=== PATIENT | female | born 1985 | race Caucasian/White ===

== ENCOUNTER 2019-06-15 23:16 | Emergency (ER) | payer OTHER, SELFPAY ==
[2019-06-15 23:16] VITALS: BP 132/76; PULSE 101; RESP 20; TEMP 36.8; O2SAT 99
--- NOTE | 2019-06-15 23:24 | ED.ASTHMA ---
HPI - Asthma General Chief Complaint: Asthma Stated Complaint: Asthma Time Seen by Provider: 06/15/19 23:18 Source: patient Mode of arrival: ambulatory Limitations: no limitations History of Present Illness HPI Narrative: 33-year-old woman with history of asthma comes in today complaining of progressively worsening cough over the last 3 days. Patient states that she initially had some nasal congestion and sinus pressure, congestion and rhinorrhea. She denies shortness of breath, fever, vomiting and sick exposures. She has had no recent travel. complaint: asthma attack Onset (ago): day(s) (3) Severity: moderate Context: recent URI Associated symptoms: dry cough Asthma History: history of prior ED visit Treatments Prior to Arrival: inhaled bronchodilator Related Data Current Asthma Therapy: inhaled bronchodilator Home Medications Medication Instructions Recorded Confirmed albuterol sulfate 2 puff INHALATION DAILY 06/15/19 06/15/19 bupropion HCl 150 mg PO DAILY 06/15/19 06/15/19 levonorgestrel-ethinyl estrad 1 tablet PO DAILY 06/15/19 06/15/19 [[id number]] Allergies Allergy/AdvReac Type Severity Reaction Status Date / Time No Known Allergies Allergy Verified 06/15/19 23:32 Review of Systems Constitutional: Constitutional: Denies chills, Denies fever(s) and Denies weakness Eyes: Eyes: Denies change in vision and Denies photophobia ENT: Denies dysphagia, Reports nasal congestion and Denies sore throat Cardiovascular: Cardiovascular: Reports chest pain and Reports radiating jaw, neck or arm pain Respiratory: Respiratory: Reports cough, Denies dyspnea and Denies wheezing Gastrointestinal: Gastrointestinal: Denies abdominal pain, Denies diarrhea, Denies nausea and Denies vomiting Genitourinary: Genitourinary: Denies hematuria, Denies nocturia and Denies dysuria Integumentary/Breasts: Skin/Breast: Denies pruritus, Denies erythema and Denies rash Neurologic: Denies vertigo, Denies dizziness and Denies syncope Psychiatric: Psychiatric: Denies anxiety and Denies depression Hematologic/Lymphatic: Hematologic/Lymphatic: Denies easy bleeding and Denies easy bruising Allergic/Immunologic: Allergic/Immunologic: Denies lip swelling and Denies throat swelling PMFSH Past Medical History Medical History Asthma Surgical History Surgical History H/O neck surgery History of section Social History Social History Smoking status: Never smoker Substance use: never Living arrangements: with family Exam Const: General: no acute distress and alert Orientation/consciousness: patient oriented x3 Limitations: no limitations HENMT: Ears: external ears normal, TM's normal bilaterally and EAC's normal Mouth: Yes Normal oral and palatal mucosa present and Yes moist mucous membranes Throat: posterior oropharynx normal and uvula midline Eyes: Conjunctivae: conjunctivae normal Pupils: Equal, round and reactive pupils present EOM: EOMs intact bilaterally Resp: Effort & Inspection: normal respiratory effort and not labored Auscultation: clear to auscultation bilaterally, no rales, no rhonchi and no wheezes Cardio: Rate: regular rate Rhythm: regular rhythm Heart sounds: no murmurs Skin: General skin exam: normal color, no jaundice and no pallor Lesions: no lesions Neuro: General: patient oriented x3, moves all extremities, no focal motor deficits and CN's II-XI intact bilaterally Extrem: General: normal to inspection and no clubbing, cyanosis or edema Psych: Appearance: grossly normal and well kempt Mental Status: mental status grossly normal Affect: normal affect Attitude: cooperative Thought content: Yes Normal thought content present Discharge Plan Discharge Clinical Impression: Asthma with acute exacerbation Qualifiers:
[2019-06-15] MEDS: predniSONE 20 MG TABLET 60 MG PO (23:41)
[2019-06-15] MEDS: IPRATROPIUM 0.5 MG/ALBUTEROL SULFATE 2.5 MG AMPUL.NEB 3 ML INHALATION (23:41)
[2019-06-16 00:02] VITALS: PULSE 97; RESP 20
[2019-06-16 00:02] LABS: Influenza Control Valid (Valid)
[2019-06-16 00:03] VITALS: PULSE 97; RESP 20; TEMP 36.8; O2SAT 99
== END 2019-06-16 00:04 | disposition home or self-care (01) ==
LOC: CHSED 23:21
PROVIDERS: Emergency Provider Emergency Medicine; PCP Physician Assistant
DX: J45.901 Unspecified asthma with (acute) exacerbation (principal)
CPT/HCPCS: 87804; 94640; 99283; J7512

== ENCOUNTER → 2022-12-17 14:10 | Outpatient (CLI) | payer OTHER, SELFPAY ==
--- NOTE | ~2022-12-17 | XR_ITS ---
EXAMINATION: XR chest 2V DATE: 12/17/2022 14:25 INDICATION: Cough TECHNIQUE: PA and lateral views of the chest are obtained. COMPARISON: None available FINDINGS: There is subtle nodular opacity of the right upper lobe. No pleural effusion or pneumothora x. The cardiomediastinal silhouette is normal. There is mild thoracic spondylosis. IMPRESSION: 1. Subtle nodular opacity of the right upper lobe which may be infectious or inflammatory. Recommend follow-up radiographs after appropriate therapy. Reviewed, dictated and finalized at location L. IMPRESSION: 1. Subtle nodular opacity of the right upper lobe which may be infectious or in flammatory. Recommend follow-up radiographs after appropriate therapy.
== END ==
PROVIDERS: PCP Physician Assistant; Visit Provider Physician Assistant
DX: R05.9 Cough, unspecified (principal); R91.8 Other nonspecific abnormal finding of lung field
CPT/HCPCS: 71046

== ENCOUNTER → 2022-12-25 13:49 | Outpatient (CLI) | payer OTHER, SELFPAY ==
--- NOTE | ~2022-12-25 | XR_ITS ---
XR chest 2V 12/25/2022 14:27 Indication: Follow-up right pulmonary nodule Procedure: 2 view chest Comparison: 12/17/2022 Findings: There is a 12 mm right upper lobe nodule. Heart size normal. Left lung clear. No pleural ef fusion, edema, focal pneumonia or pneumothorax. Impression: 1: Right upper lobe nodule measuring 12 mm. Follow-up CT chest recommended to assess for calcificatio n. Reviewed, dictated and finalized at location B. Impression: 1: Right upper lobe nodule measuring 12 mm. Follow-up CT chest recommended to a ssess for calcification.
== END ==
PROVIDERS: PCP Physician Assistant; Visit Provider Physician Assistant
DX: R05.9 Cough, unspecified (principal); R91.1 Solitary pulmonary nodule
CPT/HCPCS: 71046

== ENCOUNTER → 2023-01-13 13:47 | Outpatient (CLI) | payer OTHER, SELFPAY ==
--- NOTE | ~2023-01-13 | CT_ITS ---
Clinical Indication: Solitary pulmonary nodule CT Scan of the Chest with Contrast: Technique: Contiguous sections were acquired throughout the chest after intravenous administration of 75 cc of Omnipaque 350. Dose reduction technique was used on this scan by utilizing automated exposu re control and iterative reconstruction technique. The dose-length product (DLP) was 407.09 mGy-cm. Findings: Single mildly enlarged right axillary lymph node measures 1.5 cm in short axis (axial image 25, coron al image 50). There is no filling defect in the pulmonary arterial tree to suggest pulmonary embolus. There is no evidence of aortic dissection or aneurysm. There is no evidence of pleural or pericardial effusion. Calcified right upper lobe granuloma present. No other pulmonary abnormality seen. Images through the upper abdomen reveal subtle enhancing masses in the liver (axial image 90, 104), a partially imaged hypodense lesion in the inferior left hepatic lobe.. Impression: No significant pulmonary abnormality. Calcified granuloma noted in the right upper lobe. Single mildly prominent/enlarged right axillary lymph node, as detailed above, indeterminate. Conside r ultrasound to further assess morphology/imaging characteristics. Subtle enhancing hepatic masses, as above. These are indeterminate based on this exam. Follow-up none mergent pre and postcontrast hepatic MR recommended to attempt to confirm hemangioma versus other les ions. Reviewed, dictated and finalized at location . Impression: No significant pulmonary abnormality. Calcified granuloma noted in the right up per lobe. Single mildly prominent/enlarged right axillary lymph node, as detailed above, indeterminate. Consider ultrasound to further assess morphology/imaging charact eristics. Subtle enhancing hepatic masses, as above. These are indeterminate based on thi s exam. Follow-up nonemergent pre and postcontrast hepatic MR recommended to at tempt to confirm hemangioma versus other lesions.
== END ==
PROVIDERS: PCP Physician Assistant; Visit Provider Physician Assistant
DX: R91.1 Solitary pulmonary nodule (principal); J84.10 Pulmonary fibrosis, unspecified
CPT/HCPCS: 71260; Q9967

== ENCOUNTER → 2023-02-04 13:52 | Outpatient (CLI) | payer OTHER, SELFPAY ==
--- NOTE | ~2023-02-04 | US_ITS ---
US axilla RT 02/04/2023 14:09 Indication: Right axillary lymphadenopathy seen on prior CT examination Procedure: High-resolution Limited ultrasound of the right breast Comparison: CT dated 01/13/2023 Findings: There are multiple right axillary lymph nodes, largest measuring 1.4 x 1.3 x 0.9 cm. All of the lymph nodes contain a normal fatty hilum. No suspicious masses to suggest pathologic lymph nodes or abscess. Impression: 1: Normal-appearing right axillary lymph nodes, likely reactive. Reviewed, dictated and finalized at location A. SHINER Impression: 1: Normal-appearing right axillary lymph nodes, likely reactive.
== END ==
PROVIDERS: PCP Physician Assistant; Visit Provider Physician Assistant
DX: R59.0 Localized enlarged lymph nodes (principal)
CPT/HCPCS: 76882

== ENCOUNTER 2023-02-14 13:47 | Outpatient (CLI) | payer OTHER, SELFPAY ==
--- NOTE | ~2023-02-14 | MR_ITS ---
EXAMINATION: MR abdomen wo/w con DATE: 02/14/2023 14:47 INDICATION: Liver mass. TECHNIQUE: Magnetic resonance imaging (MRI) of the abdomen was performed without and with 18 mL Multi Teena intravenous contrast. COMPARISON: Chest CT 01/13/2023 FINDINGS: There is an 8 mm cyst in the liver. There are 2.4 cm, 2.3 cm, and 1.8 cm arterial hyperenhancing mass es in right hepatic lobe without washout. In right hepatic lobe, there is a 5.2 cm mass with interrup morgan peripheral puddling of contrast, consistent with a hemangioma. The gallbladder is contracted. The spleen, pancreas, adrenal glands, and kidneys are normal. There are no dilated loops of bowel. There are no pathologically enlarged lymph nodes. There is no free intraperitoneal fluid. IMPRESSION: 1. Three arterially hyperenhancing liver masses measuring up to 2.4 cm. The differential diagnosis in cludes hemangiomas, focal nodular hyperplasia, and less likely adenomas. 2. 5.2 cm liver hemangioma. Reviewed, dictated and finalized at location A. ING PRESS TENDER IMPRESSION: 1. Three arterially hyperenhancing liver masses measuring up to 2.4 cm. The dif ferential diagnosis includes hemangiomas, focal nodular hyperplasia, and less l ikely adenomas. 2. 5.2 cm liver hemangioma.
== END 2023-02-14 13:48 ==
LOC: MICIMG 13:47
PROVIDERS: PCP Physician Assistant; Visit Provider Physician Assistant
DX: K76.9 Liver disease, unspecified (principal)
CPT/HCPCS: 74183; A9577

== ENCOUNTER 2024-05-04 13:41 | Outpatient (CLI) | payer BC, SELFPAY ==
--- NOTE | ~2024-05-04 | XR_ITS ---
EXAMINATION: XR chest 2V DATE: 05/04/2024 13:54 INDICATION: Cough. TECHNIQUE: Frontal and lateral views of the chest were obtained. COMPARISON: Chest 2 views 12/25/2022, chest CT 01/13/2023 FINDINGS: A calcified right lung nodule is consistent with old granulomatous disease. No pleural effu myriam or pneumothorax. The heart size is normal. IMPRESSION: 1. No acute cardiopulmonary disease. Reviewed, dictated and finalized at location A. DEALERSHIP PORTER
== END 2024-05-04 13:42 | disposition home or self-care (01) ==
LOC: GOSHIMG 13:43
PROVIDERS: PCP Physician Assistant; Visit Provider Physician Assistant
DX: R05.9 Cough, unspecified (principal)
CPT/HCPCS: 71046

== ENCOUNTER 2025-03-29 09:50 | Outpatient (CLI) | payer BC, SELFPAY ==
--- NOTE | ~2025-03-29 | US_ITS ---
ULTRASOUND ABDOMEN LIMITED (RIGHT UPPER QUADRANT) Clinical History: Epigastric pain Comparison: MR abdomen 02/14/2023 Technique: Right upper quadrant sonography Findings: Liver: Normal size. Normal echotexture. No intrahepatic biliary ductal dilatation. Normal hepatopedal flow main portal vein. 6 cm echogenic lesion segment 6 consistent with hemangioma. 11 mm hyperechoic focus left lobe also consistent with hemangioma. Common Duct: Normal caliber. 5 mm. Gallbladder: No stones. No wall thickening. No pericholecystic fluid. Small polyps, largest 5 mm; no surveillance indicated given size. Pancreas: Obscured by bowel gas. IMPRESSION: 1. No acute findings. 2. Additional findings as above. Reviewed, dictated and finalized at location R. UNTS RECEIVABLE CLERK
== END 2025-03-29 09:51 | disposition home or self-care (01) ==
LOC: GOSHIMG 09:50
PROVIDERS: PCP Physician Assistant; Visit Provider Physician Assistant
DX: K82.4 Cholesterolosis of gallbladder (principal)
CPT/HCPCS: 76705